=== PATIENT | male | born 1975 | race Two or more races ===

== ENCOUNTER 2017-09-25 08:05 | Day surgery (SDC) | payer BC ==
[~2017-09-25] VITALS: Ht 185.4 cm; Wt 88.5 kg
[2017-09-25] VITALS (8 sets, daily range): BP systolic 104–117; BP diastolic 64–80
[~2017-09-25 08:05] MED LIST: LR 1000ml 1,000 ML IVLG SCH
[2017-09-25] MEDS ORDERED: LR 1000ml ONE (08:06)
[2017-09-25] MEDS ORDERED: Midazolam 2mg/2ml Inj ONE (08:06)
[2017-09-25] MEDS ORDERED: Propofol 200mg/20ml IV ONE (08:06)
--- NOTE | 2017-09-25 09:02 | Anethesia Preoperative Eval ---
Anesthesia Pre-op PMH/ROS General Date of Evaluation: Sep 25, 2017 Time of Evaluation: 09:01 Anesthesiologist: Haile ASA Score: ASA 2 Mallampati Score Class I : Soft palate, uvula, fauces, pillars visible Class II: Soft palate, uvula, fauces visible Class III: Soft palate, base of uvula visible Class IV: Only hard plate visible Mallampati Classification: Class II Surgeon: Jeison Diagnosis: Abdominal pain Surgical Procedure: EGD Colonoscopy Anesthesia History: none Social History: smoking - h/o Family History: no anesthesia problems Allergies: Coded Allergies: No Known Allergies (Unverified , 09/24/17) Medications: see eMAR Past Medical History Cardiovascular: Denies: HTN, CAD, AR, valve dz, arrhythmia, other Pulmonary: Denies: asthma, COPD, LITZY, other Gastrointestinal/Genitourinary: Reports: GERD, Denies: CRI, ESRD, other Neurologic/Psychiatric: Denies: dementia, CVA, depression/anxiety, TIA, other Endocrine: Denies: DM, hypothyroidism, steroids, other HEENT: Denies: cataract (L), cataract (R), glaucoma, CHENEGA (L), CHENEGA (R), other Hematology/Immune: Denies: anemia, DVT, bleeding disorder, other Musculoskeletal/Integumentary: Denies: OA, RA, DJD, DDD, edema, other PMH Narrative: recurrent abdominal pain, occasional blood in the stool PSxH Narrative: Appendectomy Anesthesia Pre-op Phys. Exam Physician Exam Last Vital Signs Date Time Temp Pulse Resp B/P (MAP) Pulse Ox O2 Delivery O2 Flow Rate FiO2 09/25/17 08:24 98.2 58 17 117/77 99 Room Air Constitutional: NAD Neurologic: CN 2-12 intact Cardiovascular: RRR Respiratory: CTA Gastrointestinal: S/NT/ND Airway Exam Mallampati Score: Class II MO: full ROM: full Teeth: intact Anesthesia Pre-op A/P Risk Assessment & Plan Assessment: ASA 2 Plan: MAC Status Change Before Surgery: JOLEEN Baumann M.D. Sep 25, 2017 09:02
--- NOTE | 2017-09-25 09:17 | Pre-Procedure Note/Attestation ---
Pre-Procedure Note/Attestation Complete Prior to Procedure Planned Procedure: not applicable Procedure Narrative: EGD/Colon Indications for Procedure Pre-Operative Diagnosis: Vomiting, hematochezia Attestation I attest that I discussed the nature of the procedure; its benefits; risks and complications; and alternatives (and the risks and benefits of such alternatives ), prior to the procedure, with the patient (or the patient's legal customer counter representative). I attest that, if there was a reasonable possibility of needing a blood transfusion, the patient (or the patient's legal customer counter representative) was given the [facility] standardized written summary, pursuant to the Karlos Adithya Blood Safety Act ([place] Health and Safety Code # 1645, as amended). I attest that I re-evaluated the patient just prior to the surgery and that there has been no change in the patient's H&P, except as documented below: JOAQUIM JEWELL Sep 25, 2017 09:17
--- NOTE | 2017-09-25 09:19 | Short Stay Surgery H&P ---
History of Present Illness History of Present Illness Chief Complaint See H&P for details Patient now also c/o periodic N/V gets am pressure and congestion in chest, f/b vomiting wants to have EGD added to colonoscopy for evaluation of UGI symptoms no dysphagia H&P otherwise same as attached. HPI Samuel Pozo is a 42 year old male who was admitted on for Blood In Stool Patient History Allergies: Coded Allergies: No Known Allergies (Unverified , 09/24/17) PAST MEDICAL HISTORY: Past Surgeries: Social History: Physical Exam Vital Signs Last Vital Signs Date Time Temp Pulse Resp B/P (MAP) Pulse Ox O2 Delivery O2 Flow Rate FiO2 09/25/17 08:24 98.2 58 17 117/77 99 Room Air Plan Attestation Are the patient's medical conditions optimized for surgery? JOAQUIM JEWELL Sep 25, 2017 09:19
[2017-09-25] MEDS ORDERED: DiphenhydrAMINE 50mg/ml Inj IVP PRN (09:30)
[2017-09-25] MEDS ORDERED: LR 1000ml 1,000 ML IVLG SCH (09:30)
[2017-09-25] MEDS ORDERED: fentaNYL 100 mcg/2 mL IV PRN (09:30)
--- NOTE | 2017-09-25 09:57 | Endoscopy Procedure Note ---
Endoscopy Procedure Note Indication for Procedure: N/V, BRB Procedures Performed: EGD, colonoscopy Operative Findings/Diagnosis: 3 cm HH, GERD with ulcer - bx, mild sig tics, ascending polyp -SN/Bx, Rhoid Specimen: yes Pt Tolerated Procedure Well: Yes Estimated Blood Loss: none Anesthesiologist: see report Anesthesia: MAC Medication Given: see anesthesia record Implant(s) used?: No 50 yrs or older w/o bx or poly: Not Applicable 10yrs. F/U not recommended: Not Applicable If not recommended, why?: JOAQUIM JEWELL Sep 25, 2017 09:57
--- NOTE | 2017-09-25 10:00 | Brief Operative Note ---
Immediate Post Operative Note Operative Note Chief Complaint: N/V, BRB Pre-op Diagnosis: Vomiting, hematochezia Procedure: EGD/bx, colon/bx, SN Post-op Diagnosis: 3 cm HH, GERD with ulcer - bx, mild sig tics, ascending polyp -SN/Bx, Rhoid, s/ p rectal rand bx Surgeon: bere Anesthesiologist: see report Anesthesia: MAC Specimen: yes Complications: none Condition: stable Fluids: recorded Estimated Blood Loss: none Drains: hemovac Implant(s) used?: No JOAQUIM JEWELL Sep 25, 2017 10:00
--- NOTE | 2017-09-25 10:06 | Immediate Post-Op Evaluation ---
Immediate Post-Op Evalulation Immediate Post-Op Evalulation Procedure: EGD Colonoscopy Date of Evaluation: Sep 25, 2017 Time of Evaluation: 10:05 IV Fluids: 800 Blood Products: none Estimated Blood Loss: none Urinary Output: none Blood Pressure Systolic: 107 Blood Pressure Diastolic: 58 Pulse Rate: 64 Respiratory Rate: 20 O2 Sat by Pulse Oximetry: 99 Temperature (Fahrenheit): 97.6 Pain Score (1-10): 1 Nausea: No Vomiting: No Complications none Patient Status: awake, patent, none Hydration Status: adequate JOLEEN BYRD M.D. Sep 25, 2017 10:06
--- NOTE | 2017-09-25 10:46 | 48 Hour Post Anesthesia Eval ---
Post Anesthesia Evaluation Procedure: EGD Colonoscopy Date of Evaluation: Sep 25, 2017 Time of Evaluation: 10:45 Blood Pressure Systolic: 108 0: 58 Pulse Rate: 72 Respiratory Rate: 20 Temperature (Fahrenheit): 97.6 O2 Sat by Pulse Oximetry: 98 Airway: patent Nausea: No Vomiting: No Pain Intensity: 1 Hydration Status: adequate Cardiopulmonary Status: stable Mental Status/LOC: patient returned to baseline Follow-up Care/Observations: n/a Post-Anesthesia Complications: none Follow-up care needed: ready to discharge JOLEEN BYRD M.D. Sep 25, 2017 10:46
[2017-09-25] MEDS ORDERED: NKM (11:30)
--- NOTE | 2017-09-25 21:30 | Procedure Note ---
DATE OF PROCEDURE: 09/25/2017 PROCEDURE: Upper gastrointestinal endoscopy with biopsy as well as colonoscopy with biopsy and snare polypectomy. SURGEON: Dom Story M.D. ANESTHESIA: Please see the separate anesthesiologist notes for details. PRE-ENDOSCOPIC DIAGNOSES: 1. Periodic nausea and vomiting. 2. Hematochezia. POST-ENDOSCOPIC DIAGNOSES: 1. A 3 cm hiatal hernia. 2. Esophageal ulcers just above the gastroesophageal junction consistent with reflux esophagitis. 3. Scar formation in the area of the Z-line, status post biopsy of the scar area. 4. No evidence of gastric or duodenal ulcers or pathology. 5. Mild internal hemorrhoids, status post random biopsies of the normal rectum. 6. Normal terminal ileal mucosa as well as colonic mucosa. 7. Mild internal hemorrhoids. 8. Mild left-sided diverticulosis. 9. Two diminutive ascending colon polyps in the distal ascending colon, status post cold snare polypectomy of one and biopsy removal of the second one, submitted in the same jar. 10. Normal terminal ileum. 11. Status post random biopsies of the normal rectum. PROCEDURE: The procedure, its risks, indications, alternatives, and possible complications including, but not limited to bleeding, infection, perforation, , and anesthesia complications were explained to the patient and informed consent was obtained. The diagnostic upper endoscope was introduced through the oropharynx and advanced to the duodenum. It was withdrawn and then a rectal exam was done and the colonoscope was introduced into the rectum and advanced 5 cm into the terminal ileum. Findings and procedures are as reported above. The colonoscope was removed and the patient was sent to recovery in good condition. COMPLICATIONS: None. ASSESSMENT: The patient's hematochezia is presumed to be hemorrhoidal in origin. Biopsies of the colon pathologies will be evaluated to check for adenomatous change. The patient will be advised to maintain a high-fiber diet given his early diverticular disease. The patient also has a significant degree of gastroesophageal reflux with reflux esophageal ulcer formations. The patient will need to be on long-term proton pump inhibitor therapy. RECOMMENDATIONS: 1. Reflux precautions. 2. Prilosec 20 mg daily long term care pharmacist. 3. High-fiber diet. 4. Follow up pathology results. Thank you for asking me to participate in the care of this patient. Dom Story M.D. DR: DERRICK JOB#: [id number] CC: Fabian Clemons M.D.
== END 2017-09-25 11:20 | disposition home or self-care (01) ==
LOC: GAS 08:05
DX: K92.1 Melena (principal); K44.9 Diaphragmatic hernia without obstruction or gangrene; K22.10 Ulcer of esophagus without bleeding; K64.8 Other hemorrhoids; K57.90 Diverticulosis of intestine, part unspecified, without perforation or abscess without bleeding; K63.5 Polyp of colon; K21.9 Gastro-esophageal reflux disease without esophagitis; Z90.89 Acquired absence of other organs; D12.2 Benign neoplasm of ascending colon
CPT/HCPCS: 43239; 45380; J2250; J2704; J7120; 94003; 94150